=== PATIENT | female | born 1990 | race Hispanic/Latino ===

== ENCOUNTER 2019-02-16 11:56 | Observation (INO) | payer OTHER ==
[~2019-02-16] VITALS: Ht 152.4 cm; Wt 55.3 kg
[~2019-02-16 11:56] MED LIST: PREN1TAB80 PO
[2019-02-16 12:30] VITALS: BP 115/71
[2019-02-16 12:57] LABS: HEMATOCRIT 41.4 % (36-48); MEAN CORPUSCULAR HEMOGLOBIN 26.8 pg (27.0-33.0); MEAN CORPUSCULAR HGB CONC 32.1 g/dL (32.0-36.0); MEAN CORPUSCULAR VOLUME 83.5 fL (79-99); PLATELET COUNT (AUTO) 351 K/uL (130-400); RED BLOOD CELL COUNT(AUTO) 4.96 MIL/uL (4.00-5.50); WHITE BLOOD COUNT (AUTO) 7.2 K/uL (4.8-10.8)
[2019-02-16 13:01] LABS: APPEARANCE,URINE Cloudy (CLEAR); BILIRUBIN,URINE Moderate (NEGATIVE); COLOR,URINE Dark Yellow (YELLOW); GLUCOSE, URINE (UA) Negative (NEGATIVE); KETONES,URINE >=80 mg/dL (NEGATIVE); LEUKOCYTE ESTERASE ,URINE Small (NEGATIVE); NITRATE,URINE Negative (NEGATIVE); OCCULT BLOOD,URINE Trace (NEGATIVE); PH,URINE 5.5 (5.0-8.0); PROTEIN,URINE POS 1+ mg/dL (NEGATIVE)
[2019-02-16 13:21] LABS: BACTERIA,URINE Rare /HPF (None Seen); MUCUS,URINE Moderate LPF (None Seen); RBC,URINE 0-1 /HPF (0-1); SQUAMOUS EPITHELIAL CELL,UR Rare /HPF (0-2)
[2019-02-16] MEDS ORDERED: CEFTRIAXONE SODIUM 1 GM IVP SCH (13:45)
[2019-02-16] MEDS: ACETAMINOPHEN 325 MG TAB PO PRN (13:51)
[2019-02-16] MEDS: SODIUM CHLORIDE 0.9% 1000ML 1,000 ML IV SCH ×3 (13:52→21:27)
[2019-02-16 15:23] VITALS: BP 111/73
[2019-02-16 19:50] VITALS: BP 111/74
[2019-02-16 23:31] VITALS: BP 113/63
[2019-02-17 03:56] VITALS: BP 92/68
[2019-02-17] MEDS: ACETAMINOPHEN 325 MG TAB PO PRN (07:24)
[2019-02-17 07:27] VITALS: BP 108/86
[2019-02-17] MEDS: SODIUM CHLORIDE 0.9% 1000ML 1,000 ML IV SCH ×2 (07:27→14:51)
--- NOTE | 2019-02-17 07:45 | NUR ---
DEMI THOMAS CNM ROUNDED AND ORDER GIVEN FOR ROCEPHIN 1GM TO BE GIVEN THIS A.M. AND TO REPEAT CBC AT 10AM. IF PATIENT REMAINS AFEBRILE, SHE CAN BE DISCHARGED AFTER 1700. PATIENT MADE AWARE OF ORDER AND VERBALIZED UNDERSTANDING.
[2019-02-17] MEDS ORDERED: CEFTRIAXONE SODIUM 1 GM IVP SCH (09:00)
[2019-02-17 10:16] LABS: BASOPHILS % (AUTO) 0.9 % (0.0-5.0); EOSINOPHILS % (AUTO) 8.8 % (0.0-8.0); HEMATOCRIT 37.2 % (36-48); LYMPHOCYTES % (AUTO) 24.3 % (21.0-51.0); MEAN CORPUSCULAR HEMOGLOBIN 26.7 pg (27.0-33.0); MEAN CORPUSCULAR HGB CONC 31.2 g/dL (32.0-36.0); MEAN CORPUSCULAR VOLUME 85.7 fL (79-99); MONOCYTES % (AUTO) 6.5 % (3.0-13.0); NEUTROPHILS % (AUTO) 59.3 % (40.0-77.0); PLATELET COUNT (AUTO) 282 K/uL (130-400); RED BLOOD CELL COUNT(AUTO) 4.34 MIL/uL (4.00-5.50); RED CELL DISTRIBUTION WIDTH 14.9 % (11.0-15.5); WHITE BLOOD COUNT (AUTO) 5.6 K/uL (4.8-10.8)
--- NOTE | 2019-02-17 11:00 | NUR ---
MILAGRO BLISS CRNA ROUNDED AND NO NEW ORDERS GIVEN. VERBALIZED IT'S BEEN OVER 3 WEEKS SINCE PATIENT HAD EPIDURAL AND CANNOT BE RELATED TO EPIDURAL AFTER TALKING TO PATIENT. CONTINUE HYDRATION FOR DISCHARGE THIS P.M.
[2019-02-17 11:20] VITALS: BP 107/70
--- NOTE | 2019-02-17 13:00 | NUR ---
PATIENT STABLE AND HAS REMAINED AFEBRILE. STATES FEELING BETTER AND DENIES ANY FURTHER HEADACHES.
--- NOTE | 2019-02-17 15:00 | NUR ---
DISCHARGE INSTRUCTIONS GIVEN AT THIS TIME AND PATIENT WAS INSTRUCTED OF DISCHARGE AFTER 1700. VERBALIZED UNDERSTANDING INSTRUCTIONS GIVEN. REINFORCED NEED TO KEEP SELF HYDRATED ESPECIALLY SINCE SHE IS BABY.
[2019-02-17 15:13] VITALS: BP 107/73
--- NOTE | 2019-02-17 17:45 | NUR ---
PATIENT HAD PIV REMOVED AND IV SITE WNL. PATIENT HAD STABLE VITAL SIGNS AND HAS REMAINED AFEBRILE. SHE HAS BEEN EATING AND BABY WAS BROUGHT IN FOR AND HAS BEEN BABY WELL. DENIES AND FURTHER HEADACHE. WAS TAKEN VIA W/C TO FAMILY VEHICLE AND WAS DISCHARGED TO PARENTS WITH BABY.
== END 2019-02-17 17:45 | disposition home or self-care (01) ==
LOC: WSH 12:08
PROVIDERS: ADMIT Obstetrics & Gynecology; ATTEND Obstetrics & Gynecology
DX: O86.20 Urinary tract infection following delivery, unspecified (principal); O90.89 Other complications of the puerperium, not elsewhere classified; M79.7 Fibromyalgia; R51 Headache; R42 Dizziness and giddiness
CPT/HCPCS: 36415 ×2; 81001; 82948; 85025; 85027; 87088; 87804 ×2; 96361 ×2; 96374; 96376; G0378 ×14; J0696 ×2; J7030 ×2